=== PATIENT | male | born 1990 | race Caucasian/White ===

== ENCOUNTER 2020-08-15 15:36 | Emergency (ER) | payer OTHER, BC ==
[2020-08-15] MEDS ORDERED: Diphtheria,Pertussis(Acell),Tetanus Vaccine 0.5 ML Syringe IM ONE (15:59)
--- NOTE | 2020-08-15 16:14 | EDM.PDOC ---
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 Tetanus is not up to date. No other injury. Onset: Today Location: Reports: Upper Extremity, Left Quality: Reports: Ache Severity: Mild Improves with: Reports: None Worsens with: Reports: None Associated Symptoms: Reports: No Other Symptoms Review of Systems - Review of Systems Review Of Systems: Comprehensive ROS is negative, except as noted in HPI. ED EXAM, GENERAL - Physical Exam Exam: See Below Exam Limited By: No Limitations General Appearance: Alert, WD/WN, No Apparent Distress Head: Atraumatic, Normocephalic Neck: Normal Inspection Respiratory/Chest: No Respiratory Distress, Lungs Clear Cardiovascular: Regular Rate, Rhythm Extremities: Normal Range of Motion, Normal Capillary Refill, Other (2cm crescent superficial flap laceration to the proximal segment on the dorsal left 2nd finger. ). No: Joint Swelling Course - Orders/Labs/Meds Orders: Active Orders 24 hr Category Date Time Status Vaccines to be Administered [RC] PER UNIT ROUTINE Care 08/15/20 16:00 Active Steri Strips Application [OM.PC] Routine Oth 08/15/20 16:00 Ordered Meds: Medications Discontinued Medications Generic Name Dose Route Start Last Admin Trade Name Freq PRN Reason Stop Dose Admin Diphtheria/Tetanus/Acell Pertussis 0.5 ml 08/15/20 15:59 Diphtheria,Pertussis(Acell),Tetanus Vaccine 0.5 Ml Syringe IM 08/15/20 16:00 .ONCE ONE - Re-Assessments/Exams Free Text/Narrative Re-Assessment/Exam: 08/15/20 16:01 No procedural wound care by physician. Steri-strip per RNl Departure - Departure Time of Disposition: 16:12 Disposition: Home, Self-Care 01 Condition: Good Clinical Impression: Finger laceration - Discharge Information *PRESCRIPTION DRUG MONITORING PROGRAM REVIEWED*: Not Applicable *COPY OF PRESCRIPTION DRUG MONITORING REPORT IN PATIENT TIERRA: Not Applicable Instructions: Sutures, [place], or Adhesive Wound Closure, [id number] Forms: ED Department Discharge Additional Instructions: Keep the wound and Steri-strips dry. Do not pull the Steri-strips off. Let them come off on their own. Follow up in clinic if gets infectex. - My Orders Last 24 Hours: My Active Orders 08/15/20 16:00 Vaccines to be Administered [RC] PER UNIT ROUTINE Steri Strips Application [OM.PC] Routine - Assessment/Plan Last 24 Hours: My Active Orders 08/15/20 16:00 Vaccines to be Administered [RC] PER UNIT ROUTINE Steri Strips Application [OM.PC] Routine I have read and agree with the documentation that has been completed regarding this visit. By signing this record, I attest that the documentation was completed in my physical presence and is an accurate record of the encounter.
== END 2020-08-15 16:36 | disposition home or self-care (01) ==
LOC: DL.ED 15:36
DX: S61.211A Laceration without foreign body of left index finger without damage to nail, initial encounter (principal); Z23 Encounter for immunization; W26.8XXA Contact with other sharp object(s), not elsewhere classified, initial encounter
CPT/HCPCS: 90471; 90715; 99282

== ENCOUNTER 2022-09-12 01:13 | Emergency (ER) | payer BC, OTHER ==
[2022-09-12] MEDS ORDERED: Acetaminophen/oxyCODONE 325-5 MG Tab PO ONE (01:39)
[2022-09-12] MEDS ORDERED: Amoxicillin/Clavulanate K 875-125 MG Tab PO ONE (01:39)
== END 2022-09-12 02:32 | disposition home or self-care (01) ==
LOC: DL.ED 01:13
DX: K02.9 Dental caries, unspecified (principal); Z91.018 Allergy to other foods
CPT/HCPCS: 99282; A9270-GY